=== PATIENT | female | born 1950 | race Caucasian/White ===

== ENCOUNTER 2016-03-18 17:30 | Outpatient (CLI) | payer OTHER | END 2016-03-18 17:31 | disposition home or self-care (01) | LOC: NC 17:30 | PROVIDERS: ATTEND Family Medicine | DX: E11.9 Type 2 diabetes mellitus without complications (principal); Z71.3 Dietary counseling and surveillance; E66.9 Obesity, unspecified; I10 Essential (primary) hypertension; K21.0 Gastro-esophageal reflux disease with esophagitis; Z68.43 Body mass index [BMI] 50.0-59.9, adult ==